=== PATIENT | female | born 1960 | race African-American/Black ===

== ENCOUNTER 2019-03-19 17:15 | Emergency (ER) | payer MEDICAID ==
[~2019-03-19] VITALS: Ht 162.6 cm; Wt 44.0 kg
--- NOTE | 2019-03-19 17:33 | NUR ---
ED Nurse Note: Pt came into the ER w/ complaints of left foot pain since this morning. Pt states that she "feels like it's ." Pt is rating the pain a 10/10. Non radiating. Pt is A + O x4. Skin warm to touch.
--- NOTE | 2019-03-19 17:48 | Emergency Room Report ---
History of Present Illness General Chief Complaint: Lower Extremity Injury Source: Patient (Ana Cristina Hester) Present Illness HPI 58-year-old female presents to the emergency department complaining of 10 out of 10 in severity pain to the left lower extremity specifically in the foot radiating up towards the calf. Patient states that her foot is also experiencing numbness as well. Patient states she had onset since last night she states that for several days prior she had these symptoms intermittently however her symptoms this time have been persistent. Patient denies trauma or fall she denies low back or low back pain she denies fevers, chills. She reports history of high blood pressure she is a smoker and she also uses cocaine for which she states that she used within the last 24 hours. She also states that she occasionally uses marijuana. She denies using estrogen products. She denies cardiac history history of CVA or recent surgery, immobilization or recent travel. Denies skin color changes in the lower extremities she does report bilateral feet are always cold. Denies symptoms such as paresthesias or pain in the right lower extremity. She denies any alleviating factors at this time she states any palpation or movement exacerbates her pain. (Ana Cristina Hester) Allergies: Coded Allergies: No Known Allergies (Unverified , 03/19/19) Patient History Past Medical History: see triage record, HTN Past Surgical History: none Pertinent Family History: none Social History: Reports: smoking, alcohol use, drug use - cocaine and THC Last Menstrual Period: na Now: No Reviewed Nursing Documentation: PMH: Agreed; PSxH: Agreed (Ana Cristina Hester) Nursing Documentation-PMH Past Medical History: No History, Except For Hx Hypertension: Yes (Ana Cristina Hester) Review of Systems All Other Systems: negative except mentioned in HPI (Ana Cristina Hester) Physical Exam Vital Signs Date Time Temp Pulse Resp B/P (MAP) Pulse Ox O2 Delivery O2 Flow Rate FiO2 03/19/19 17:28 95.0 93 22 96 Room Air Sp02 EP Interpretation: reviewed, normal General Appearance: alert, GCS 15, non-toxic, severe distress, thin Head: normocephalic, atraumatic Eyes: bilateral eye normal inspection, bilateral eye PERRL ENT: hearing grossly normal, normal voice Neck: full range of motion Respiratory: lungs clear, normal breath sounds, speaking full sentences Cardiovascular #1: regular rate, rhythm Cardiovascular #2: 0 dorsalis pedis (R), 0 dorsalis pedis (L) Gastrointestinal: non tender, soft Musculoskeletal: back normal, normal range of motion, other - Pain out of proportion, tender - Left Lower extremity tender to superficial light touch from knee down. no lower back TTP Neurologic: alert, oriented x3, responsive, motor strength/tone normal, speech normal, other - PT. reports paresthesia in left foot, did not feel me remove her sock., grossly normal Psychiatric: judgement/insight normal, anxious Skin: normal color, no rash, warm/dry, well hydrated, other - Inability to palpate pulses in bilateral extremities, lower extremities are cool to the touch from the knee down, and extreme pain that is out of proportion to physical exam (Ana Cristina Hester) Medical Decision Making PA Attestation Dr. Carroll is my supervising Physician whom patient management has been discussed with. (Ana Cristina Hester) Diagnostic Impression: Primary Impression: Arterial occlusion, lower extremity Additional Impressions: DEREJE (acute kidney injury) Cocaine abuse Polycythemia ER Course 58-year-old female presents to the emergency department complaining of 10 out of 10 in severity pain to the left lower extremity specifically in the foot radiating up towards the calf. Patient states that her foot is also experiencing numbness as well. Patient states she had onset since last night she states that for several days prior she had these symptoms intermittently however her symptoms this time have been persistent. Patient denies trauma or fall she denies low back or low back pain she denies fevers, chills. She reports history of high blood pressure she is a smoker and she also uses cocaine for which she states that she used within the last 24 hours. She also states that she occasionally uses marijuana. She denies using estrogen products. She denies cardiac history history of CVA or recent surgery, immobilization or recent travel. Denies skin color changes in the lower extremities she does report bilateral feet are always cold. Denies symptoms such as paresthesias or pain in the right lower extremity. She denies any alleviating factors at this time she states any palpation or movement exacerbates her pain. Ddx considered but are not limited to muscle spasm/cramps, arterial occlusion, DVT, varicose vein, PAD,Venous insufficiency, or rhabdo just to name a few Vital signs: are WNL, pt. is afebrile H&PE are most consistent with : Inability to palpate pulses in bilateral extremities, lower extremities are cool to the touch from the knee down, and extreme pain that is out of proportion to physical exam.-Suspect circulatory compromise. ORDERS: -CMP: BUN 50 and CR 2.5 -CBC with Diff: * Elevated Hgb. 19,5 6.8 RBC, 57.3 HCT -PT/PTT: PT elevated @ 12, PTT WNL - LE duplex ARTERIAL and VENOUS US to R/O dvt. or occlusion -CK: WNL -Troponin: WNl ED INTERVENTIONS: -Morphine 4mg IM - Ativan 1mg IV -NS 1 Liter Bolus - Pt started on Heparin DISPOSITION: at this time pt. will be admitted to Dr. Drake at [facility] for higher level of care of Left Lower Extremity Arterial occlusion Dr. Drake agreed to admit the pt. and to continue pt. care management. Labs Test 03/19/19 19:39 White Blood Count 10.1 K/UL (4.8-10.8) Red Blood Count 6.83 M/UL (4.20-5.40) Hemoglobin 19.4 G/DL (12.0-16.0) Hematocrit 57.3 % (37.0-47.0) Mean Corpuscular Volume 84 FL (80-99) Mean Corpuscular Hemoglobin 28.5 PG (27.0-31.0) Mean Corpuscular Hemoglobin Concent 33.9 G/DL (32.0-36.0) Red Cell Distribution Width 14.1 % (11.6-14.8) Platelet Count 261 K/UL (150-450) Mean Platelet Volume 6.2 FL (6.5-10.1) Neutrophils (%) (Auto) 65.4 % (45.0-75.0) Lymphocytes (%) (Auto) 28.6 % (20.0-45.0) Monocytes (%) (Auto) 4.5 % (1.0-10.0) Eosinophils (%) (Auto) 0.3 % (0.0-3.0) Basophils (%) (Auto) 1.1 % (0.0-2.0) Prothrombin Time 12.0 SEC (9.30-11.50) Prothromb Time International Ratio 1.1 (0.9-1.1) Activated Partial Thromboplast Time 27 SEC (23-33) Sodium Level 135 MMOL/L (136-145) Potassium Level 3.3 MMOL/L (3.5-5.1) Chloride Level 97 MMOL/L (98-107) Carbon Dioxide Level 28 MMOL/L (21-32) Anion Gap 10 mmol/L (5-15) Blood Urea Nitrogen 50 mg/dL (7-18) Creatinine 2.5 MG/DL (0.55-1.30) Estimat Glomerular Filtration Rate 24.1 mL/min (>60) Glucose Level 124 MG/DL (74-106) Calcium Level 9.0 MG/DL (8.5-10.1) Total Bilirubin 0.8 MG/DL (0.2-1.0) Aspartate Amino Transf (AST/SGOT) 28 U/L (15-37) Alanine Aminotransferase (ALT/SGPT) 20 U/L (12-78) Alkaline Phosphatase 82 U/L (46-116) Total Creatine Kinase 238 U/L (26-308) Troponin I 0.020 ng/mL (0.000-0.056) C-Reactive Protein, Quantitative < 0.4 mg/dL (0.00-0.90) Total Protein 6.7 G/DL (6.4-8.2) Albumin 3.0 G/DL (3.4-5.0) Globulin 3.7 g/dL Albumin/Globulin Ratio 0.8 (1.0-2.7) (Ana Cristina Hester) ER Course Please see above note. Contact [facility] at 21:30 for possible vascular transfer. Accepted by Dr. Harris. Also apparently by Dr. Drake. Start heparin. Discussed with Dr. Chin ([place]) who reports patient might have signed out AMA from [facility]. Is in agreement for transfer to [facility]. (Dada Carroll MD) EKG Diagnostic Results EP Interpretation: Dr. Carroll Rate: normal - 93bpm Rhythm: NSR ST Segments: no acute changes Other Impression Prolonged QT interval, evidence of hypertrophy ASA given to the pt in ED: No PA Scribe Text This Interpretation was scribed by JALIL Hester. (Ana Cristina Hester) Chest X-Ray Diagnostic Results Chest X-Ray Diagnostic Results : Chest X-Ray Ordered: Yes # of Views/Limited/Complete: 1 View Indication: Shortness of Breath EP Interpretation: Yes PA Xray: Interpretation reviewed, by supervising MD, and agrees with findings. Interpretation: no consolidation, no effusion, no pneumothorax Impression: No acute disease Electronically Signed by: Ana Cristina Hester PA-C (Ana Cristina Hester) Chest X-Ray Diagnostic Results : Chest X-Ray Ordered: Yes # of Views/Limited/Complete: 1 View Indication: Other EP Interpretation: Yes Interpretation: no consolidation, no effusion, no pneumothorax, other - scarring Impression: Other Electronically Signed by: Electronically signed by Dada Carroll MD (Dada Carroll MD) Other X-Ray Diagnostic Results Other X-Ray Diagnostic Results : # of Views/Limited Vs Complete: 1 View (Ana Cristina Hester) CT/MRI/US Diagnostic Results CT/MRI/US Diagnostic Results #1: Imaging Test Ordered: Venous Duplex Ultra Sound Left Lower Extremity CT/MRI/US Diagnostic Results #2: Imaging Test Ordered: Venous Duplex Arterial Ultra Sound Impression - Per preliminary US tech Verbal report- Left popliteal artery occlusion, unable to identify flow distally in the left lower extremity. (Ana Cristina Hester) Last Vital Signs Date Time Temp Pulse Resp B/P (MAP) Pulse Ox O2 Delivery O2 Flow Rate FiO2 03/19/19 17:28 95.0 93 22 96 Room Air (Ana Cristina Hester) Last Vital Signs Date Time Temp Pulse Resp B/P (MAP) Pulse Ox O2 Delivery O2 Flow Rate FiO2 03/19/19 18:26 95.0 03/19/19 17:28 93 22 96 Room Air Status: improved (Dada Carroll MD) Disposition: XFER SHT-TRM HOSP Condition: Serious Ana Cristina Hester March 19, 2019 17:48 Dada Carroll MD March 19, 2019 21:40
[2019-03-19] MEDS ORDERED: Morphine Sulfate 2mg/ml Inj(IV/IM USE ONLY) IVP ONE (18:00)
--- NOTE | 2019-03-19 18:31 | NUR ---
ED Nurse Note: US at the bedside.
--- NOTE | 2019-03-19 19:03 | NUR ---
HAND-OFF: Report given to KASSY Neal.
--- NOTE | 2019-03-19 19:04 | NUR ---
ED Nurse Note: Received report from Jet/ KASSY. Pt was A/O X4, C/O Left leg pain 08/21. Pt is having U/S right now. Will continue to monitor.
[2019-03-19] MEDS ORDERED: LORazepam Inj 2mg/ml 1ml IM ONE (19:30)
[2019-03-19] MEDS ORDERED: LORazepam Inj 2mg/ml 1ml IV ONE (19:45)
[2019-03-19 20:11] LABS: ANION GAP 10 mmol/L (5-15); BLOOD UREA NITROGEN 50 mg/dL (7-18); CARBON DIOXIDE 28 MMOL/L (21-32); CHLORIDE 97 MMOL/L (98-107); CREATININE 2.5 MG/DL (0.55-1.30); POTASSIUM 3.3 MMOL/L (3.5-5.1); SODIUM 135 MMOL/L (136-145)
[2019-03-19 20:14] LABS: ALANINE AMINOTRANSFERASE 20 U/L (12-78); ALBUMIN/GLOBULIN RATIO 0.8 (1.0-2.7); ALKALINE PHOSPHATASE 82 U/L (46-116); ASPARTATE AMINO TRANSFERASE 28 U/L (15-37); BILIRUBIN,TOTAL 0.8 MG/DL (0.2-1.0); CREATINE KINASE 238 U/L (26-308)
[2019-03-19 20:19] LABS: BASOPHILS % (AUTO) 1.1 % (0.0-2.0); EOSINOPHILS % (AUTO) 0.3 % (0.0-3.0); HEMATOCRIT 57.3 % (37.0-47.0); LYMPHOCYTES % (AUTO) 28.6 % (20.0-45.0); MEAN CORPUSCULAR VOLUME 84 FL (80-99); MONOCYTES % (AUTO) 4.5 % (1.0-10.0); NEUTROPHILS % (AUTO) 65.4 % (45.0-75.0); PLATELET COUNT 261 K/UL (150-450); RED BLOOD COUNT 6.83 M/UL (4.20-5.40); RED CELL DISTRIBUTION WIDTH 14.1 % (11.6-14.8); WHITE BLOOD COUNT 10.1 K/UL (4.8-10.8)
[2019-03-19 20:23] LABS: HEMOGLOBIN 19.4 G/DL (12.0-16.0)
[2019-03-19 20:35] LABS: INR 1.1 (0.9-1.1)
--- NOTE | 2019-03-19 20:57 | NUR ---
ED Nurse Note: Ativan 1mg IV given as MD requested.
[2019-03-19] MEDS ORDERED: Heparin 25,000u/D5W 500ml 500 ML IV SCH (21:45)
[2019-03-19] MEDS ORDERED: Heparin 5000 units/ml inj IV ONE (21:45)
--- NOTE | 2019-03-19 22:16 | NUR ---
ED Nurse Note: Started Heparin drip at 10.56ml/hr and bulus dose given as ordered.
--- NOTE | 2019-03-19 22:50 | NUR ---
ED Nurse Note: Pt's friend, Rosa/ tel: [phone].
--- NOTE | 2019-03-19 23:42 | NUR ---
ED Nurse Note: D/c'd Heparin drip as protocol.
[2019-03-19 23:44] VITALS: BP 165/95
--- NOTE | 2019-03-19 23:44 | NUR ---
TRANSFER to [facility] : Patient transferred to [facility] as ordered for continue care. Report given to Marichuy/KASSY, Charge/ER. Belongings sent with Pt.
--- NOTE | 2019-03-20 10:14 | Diagnostic Imaging Report ---
Indication: Left lower extremity pain and swelling. Technique: Duplex Doppler imaging performed from the left common femoral vein to the popliteal vein. FINDINGS: Normal compressibility demonstrated from the common femoral vein to the popliteal vein. Respiratory phasicity and good augmentation demonstrated on waveform analysis. There is no evidence of thrombosis. IMPRESSION: No evidence of deep venous thrombosis within the left lower extremity.
--- NOTE | 2019-03-20 10:31 | Diagnostic Imaging Report ---
Indication: Left lower extremity pain Technique: Grayscale imaging and duplex Doppler interrogation of the left lower extremity arteries performed from the groin to the ankle. Comparison: None Findings: The common femoral artery is patent showing a biphasic waveform. There are scattered mural plaques both calcified and noncalcified within the common femoral artery and superficial femoral artery. The left superficial femoral artery shows a biphasic waveform and is patent though there are portions that show mild to moderate narrowing. The left popliteal artery shows a area of high-grade stenosis with monophasic waveform and scant color flow Doppler signal. Below the left popliteal artery, there is no significant trifurcation arterial vessels that are patent and visualized on this study. Recommend obtaining CT or conventional angiogram for further evaluation and to assess for endovascular or surgical intervention. 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 No significant runoff below the knee identified on this examination. Recommend CTA or conventional angiogram for further evaluation.
--- NOTE | 2019-03-20 10:56 | Diagnostic Imaging Report ---
Indication: Chest pain Comparison: None A single view chest radiograph was obtained. Findings: Cardiomediastinal appearance is within normal limits for age. The lungs are clear. Pulmonary vascularity is appropriate. The diaphragmatic contour is smooth and costophrenic angles are sharp. No pleural effusions are identified. The bones are unremarkable. Impression: No acute findings
== END 2019-03-19 23:44 | disposition short-term general hospital (02) ==
LOC: EMR 18:36
DX: I77.1 Stricture of artery (principal); N17.9 Acute kidney failure, unspecified; F14.10 Cocaine abuse, uncomplicated; D75.1 Secondary polycythemia; R20.0 Anesthesia of skin; F17.200 Nicotine dependence, unspecified, uncomplicated; I10 Essential (primary) hypertension; R07.9 Chest pain, unspecified
CPT/HCPCS: 36415; 71045; 80053; 82550; 84484; 85025; 85610; 85730; 86140; 93005; 93926; 93971; 96361; 96365; 96366; 96372; 96375; 99284; J1644; J2270